=== PATIENT | female | born 1940 | race Caucasian/White ===

== ENCOUNTER → 2019-12-17 | Outpatient (CLI) | payer MEDICARE ==
[~2019-12-17] MED LIST: CARVEDILOL12.5 MG PO; ELIQUIS5 MG PO; LISINOPRIL5 MG PO; MOBIC15 MG PO; NEURONTIN 300M300 M2 PO; NEURONTIN600 MG PO; PROTONIX40 M1 PO; SPIRONOLACTONE50 MG PO; TERBINAFINE HC250 MG PO; TURMERIC500 M2 PO; TYLENOL EXTRA500 MG PO; VITAMIN D2000 UNIT PO
== END ==
LOC: SJCVC 11:29
DX: G45.9 Transient cerebral ischemic attack, unspecified (principal); I10 Essential (primary) hypertension; I48.0 Paroxysmal atrial fibrillation; Z95.0 Presence of cardiac pacemaker

== ENCOUNTER → 2020-01-18 | Outpatient (CLI) | payer OTHER | LOC: MRI 01-14 09:16 | DX: M50.23 Other cervical disc displacement, cervicothoracic region (principal); M43.03 Spondylolysis, cervicothoracic region; M47.813 Spondylosis without myelopathy or radiculopathy, cervicothoracic region; M48.02 Spinal stenosis, cervical region; G45.9 Transient cerebral ischemic attack, unspecified; R27.0 Ataxia, unspecified; R20.9 Unspecified disturbances of skin sensation ==